=== PATIENT | female | born 1950 | race Hispanic/Latino ===

== ENCOUNTER 2017-12-09 11:29 | Inpatient (IN) | payer OTHER ==
[2017-12-09] MEDS ORDERED: NA CHLORIDE 0.9% 500 ML ONE (12:18)
[2017-12-09 13:10] LABS: Absolute Lymphocytes (CBC) 0.3 K/uL (0.7-4.9); Absolute Monocytes 0.9 K/uL (0.1-1.3); Absolute Neutrophil 5.3 K/uL (1.8-8.0); Basophils % 0.9 % (0-1.3); Eosinophils % 0.1 % (0-4.4); Hematocrit 28.1 % (36.0-45.0); Lymphocytes % 4.5 % (15.3-44.8); MCH 21.3 pg (27.0-35.0); MCV 70.9 fL (80-100); MPV 8.7 fL (7.6-11.3); Monocytes % 14.2 % (3.3-12.3); RBC Red Blood Cell Count 3.97 M/uL (3.86-4.86)
--- NOTE | 2017-12-09 13:41 | RAD REPORT ---
EXAM DESCRIPTION: RAD - Chest Single View - 12/09/2017 1:08 pm CLINICAL HISTORY: Shortness of breath, cough COMPARISON: June 2017 TECHNIQUE: AP portable chest image was obtained 1258 hours . FINDINGS: Patient has a baseline of chronic interstitial lung disease. Large left pleural effusion i s present. The convex contour raises concern for loculation. A much smaller right pleural effusion is present. There is fluid along the major and minor fissure on the right. Trachea is midline. Cardiome tamia is present. Vasculature is mildly prominent. Pneumothorax seen on the comparison is no longer id entifiable on this study. No acute bone findings seen. No acute aortic findings suspected. IMPRESSION: Large left-sided pleural effusion possibly loculated. Smaller right pleural effusion without evidence for loculation. Cardiomegaly increased from the June 2017 study. CHF/ volume overload are suspected.
--- NOTE | 2017-12-09 14:05 | ER ---
Nurse's Notes [facility] Name: Deejay Burgess Age: 67 yrs Sex: Female : 1950 Arrival Date: 12/09/2017 Time: 11:39 Bed 5 Private MD: Roxanne Lee Diagnosis: Pleural condition, unspecified;Dyspnea;Hypoxemia;Unspecified combined systolic (congestive) and diastolic (congestive) heart failure;Anemia, unspecified;Hypomagnesemia;Type 1 diabetes mellitus-poorly controlled Presentation: 12/09 11:30 Presenting complaint: EMS states: pt is a resident of [facility], diagnosed with sg bilateral pleural effusion, experiencing SOB this morning, NH staff reports 02 saturation low 80's, EMS report upon arrival 02 saturation of 98 percent on RA, NC o2 applied at 4 lpm NC for comfort. Transition of care: patient was received from another setting of care ([facility]. Onset of symptoms was December 09, 2017. Risk Assessment: Do you want to hurt yourself or someone else? Patient reports no desire to harm self or others. Initial Sepsis Screen: Does the patient meet any 2 criteria? HR > 90 bpm. Does the patient have a suspected source of infection? No. Patient's initial sepsis screen is negative. Care prior to arrival: Glucose check: 461. 11:30 Method Of Arrival: EMS: [facility] sg 11:30 Acuity: PEPPER 3 sg Triage Assessment: 11:40 General: Appears in no apparent distress. comfortable, slender, well groomed, well sg developed, well nourished, Behavior is calm, cooperative, appropriate for age. Respiratory: Reports shortness of breath at rest the patient has mild shortness of breath. Historical: - Allergies: 11:46 No Known Allergies; sg - Home Meds: 17:15 glipizide 5 mg Oral tab [Active]; Metformin Oral [Active]; Novolog 100 unit/mL Sub-Q sg soln [Active]; - PMHx: 11:46 Diabetes - IDDM; Pneumothorax; GERD; Hypertension; Pulmonary Fibrosis; Malnutrition; sg Dementia; Dysphagia; General Weakness; - PSHx: 11:46 chest tube; sg - Immunization history:: Adult Immunizations up to date. - Social history:: Smoking status: Patient/guardian denies using tobacco. - Ebola Screening: : Patient negative for fever greater than or equal to 101.5 degrees Fahrenheit, and additional compatible Ebola Virus Disease symptoms Patient denies exposure to infectious person Patient denies travel to an Ebola-affected area in the 21 days before illness onset No symptoms or risks identified at this time. - Code Status:: Full code. Screenin:40 Abuse screen: Denies threats or abuse. Denies injuries from another. Nutritional sg screening: No deficits noted. Tuberculosis screening: No symptoms or risk factors identified. Never had TB. Fall Risk None identified. Assessment: 11:40 General: Appears in no apparent distress. slender, well groomed, well developed, well sg nourished, malnourished, Behavior is calm, cooperative, appropriate for age. Pain: Denies pain. Neuro: Level of Consciousness is awake, alert, obeys commands, Oriented to person, place, time, situation, Automotive T[employer] Technician are equal bilaterally Moves all extremities. Speech is normal, Facial symmetry appears normal. Cardiovascular: Rhythm is sinus rhythm. Cardiovascular: Heart tones S1 S2 present Capillary refill is brisk in bilateral fingers Patient's skin is warm and dry. Pulses are palpable in right radial artery, right posterior tibial artery, left radial artery and left posterior tibial artery Edema is 2+ to right forearm, right wrist, right hand, left ankle, left foot, left toes, left forearm, left wrist, left hand, right ankle, right foot and right toes Chest pain is denied. Respiratory: Airway is patent Respiratory effort is even, unlabored, Respiratory pattern is regular, symmetrical, Breath sounds are diminished in left posterior lower lobe, right posterior middle lobe and right posterior lower lobe. GI: Abdomen is flat, non-distended, Bowel sounds present X 4 quads. hyperactive in right lower quadrant and left lower quadrant. : No signs and/or symptoms were reported regarding the genitourinary system. EENT: No signs and/or symptoms were reported regarding the EENT system. Derm: Skin is intact, is fragile, is thin, Skin is dry, Skin is pale, Skin temperature is hot. Musculoskeletal: No signs and/or symptoms reported regarding the musculoskeletal system. 13:00 Reassessment: Patient appears in no apparent distress at this time. Patient and/or sg family updated on plan of care and expected duration. Pain level reassessed. Patient is alert, oriented x 3, equal unlabored respirations, skin warm/dry/pink. Lab at bedside for blood draw. 14:30 Reassessment: Patient appears in no apparent distress at this time. Patient and/or sg family updated on plan of care and expected duration. Pain level reassessed. Patient is alert, oriented x 3, equal unlabored respirations, skin warm/dry/pink. pt attempt to provide a urine specimen, but also had a BM in the bed glover. no urine specimen collected at this time. 14:52 Reassessment: Patient appears in no apparent distress at this time. cardiopulmonary sg tech at bedside for ECHO. 16:30 Reassessment: Patient appears in no apparent distress at this time. Patient and/or sg family updated on plan of care and expected duration. Pain level reassessed. Patient is alert, oriented x 3, equal unlabored respirations, skin warm/dry/pink. Patient states feeling better. Reassessment: pt assisted onto bed glover, pt voided x1. Vital Signs: 11:39 BP 123 / 74; Pulse 103; Resp 17 S; Temp 99.6; Pulse Ox 93% on R/A; Pain 0/10; sg 11:40 Pulse Ox 100% on 3 lpm NC; sg 12:39 BP 121 / 79; Pulse 107; Resp 17 S; Pulse Ox 100% on R/A; Pain 0/10; sg 13:40 BP 122 / 70; Pulse 92; Resp 17; Pulse Ox 98% on 3 lpm NC; Pain 0/10; sg 17:50 BP 121 / 69; Pulse 92; Resp 17; Temp 98.9; Pulse Ox 99% on 3 lpm NC; Pain 0/10; ph ED Course: 11:30 Arm band placed on. sg 11:39 Patient arrived in ED. sg 11:39 Олег Nolan MD is Private Physician. sg 11:40 Patient has correct armband on for positive identification. Placed in gown. Bed in low sg position. Side rails up X2. metrology engineer on. Pulse ox on. NIBP on. Warm blanket given. Head of bed elevated. 11:40 Inserted saline lock: 22 gauge in right forearm, using aseptic technique. sg 11:42 Mitchell Bal MD is Attending Physician. [facility] 11:43 Triage completed. sg 11:50 Roxanne Lee is Private Physician. sg 11:52 Michele Cruz, RN is Primary Nurse. sg 12:13 EKG done, by orthodontic laboratory technician. reviewed by Mitchell Bal MD. tc 12:52 Radiology exam delayed due to lab draw. jr1 12:59 X-ray completed. Portable x-ray completed in exam room. jr1 13:00 XRAY Chest (1 view) In Process Unspecified. EDMS 14:02 Sawyer Kong DO is Hospitalizing Provider. althea 14:08 Assisted to bedside commode. sg 14:38 EJ access, d/t multiple recollects needed for serum blood draw. Lab(s) recollected, by ED staff, sent to lab. Inserted saline lock: 18 gauge in right EJ, using aseptic technique. Blood collected. IV inserted by . 14:48 Diet: Patient given water. sg 15:[address] sj 16:10 CT completed. Patient tolerated procedure well. Patient moved back from MA. nj 17:13 Patient admitted, IV remains in place. intact, No redness/swelling at site. sg Administered Medications: 12:20 Drug: NS 0.9% 1000 ml Route: IV; Rate: 75 ml/hr; Site: right forearm; sg 15:20 Drug: Lasix 40 mg Route: IVP; Site: right forearm; sg 16:00 Follow up: Response: No adverse reaction sg 15:30 Drug: Magnesium Sulfate 1 grams Route: IVPB; Infused Over: 1 hrs; Site: right forearm; ss 15:39 Drug: Insulin Regular Human 10 units {Co-Signature: em (Jessenia Keller RN).} Route: IVP; ss Site: right forearm; 17:12 Follow up: Response: No adverse reaction; Blood sugar is lowered; 339 sg 15:40 Drug: Insulin Regular Human 8 units {Co-Signature: ph (Jessenia Keller RN).} Route: ss Sub-Q; Site: right upper arm; Point of Care Testing: Blood Glucose: 12:35 Blood Glucose: 439 mg/dL; sg Ranges: Intake: 14:54 void urinex1 sg Output: 14:54 Stool: 1 (Loose Stool) ; Total: 0ml. sg 14:54 void urinex1 sg Outcome: 14:04 Decision to Hospitalize by Provider. althea 17:14 Admitted to Med/surg accompanied by tech, family with patient, via stretcher, room 201, with chart, Report called to Patti BOOGIE 17:14 Condition: stable 17:14 Instructed on the need for admit, safety practices, Demonstrated understanding of instructions. 17:57 Patient left the ED. sg Signatures: Dispatcher [employer] EDMichele Adler RN RN Mitchell Loja MD MD cha Jones, Carmen Hammad, Franchesca schneider1 Doreen Rodriguez RN RN Sarahi Ramirez, repair cameraman EKG [facility] Jessenia Keller RN RN ph Arun, Daren Keller RN ph Corrections: (The following items were deleted from the chart) 12:09 11:40 Cardiovascular: Heart tones S1 S2 present Capillary refill is brisk in bilateral sg fingers Patient's skin is warm and dry. Chest pain is denied 12:57 12:39 BP 121 / 79; Pulse 77bpm; Resp 17bpm; Spontaneous; Pulse Ox 100% RA; Pain 0/10; sgsg
--- NOTE | 2017-12-09 14:05 | EDPHYS ---
Physician Documentation [facility] Name: Deejay Burgess Age: 67 yrs Sex: Female : 1950 Arrival Date: 12/09/2017 Time: 11:39 Bed 5 Private MD: Roxanne Lee ED Physician Mitchell Bal HPI: 12/09 11:55 This 67 yrs old Female presents to ER via EMS with complaints of Shortness Of althea Breath, General Weakness. 11:55 The patient has shortness of breath at rest, with light activity. Onset: The althea symptoms/episode began/occurred 2 day(s) ago. Duration: The symptoms are chronic. The patient's shortness of breath has no apparent modifying factors. Associated signs and symptoms: Pertinent positives: non-productive cough, nausea. Severity of symptoms: At their worst the symptoms were moderate in the emergency department the symptoms have resolved. The patient has experienced similar episodes in the past, several times. Historical: - Allergies: 11:46 No Known Allergies; sg - Home Meds: 17:15 glipizide 5 mg Oral tab [Active]; Metformin Oral [Active]; Novolog 100 unit/mL Sub-Q sg soln [Active]; - PMHx: 11:46 Diabetes - IDDM; Pneumothorax; GERD; Hypertension; Pulmonary Fibrosis; Malnutrition; sg Dementia; Dysphagia; General Weakness; - PSHx: 11:46 chest tube; sg - Immunization history:: Adult Immunizations up to date. - Social history:: Smoking status: Patient/guardian denies using tobacco. - Ebola Screening: : Patient negative for fever greater than or equal to 101.5 degrees Fahrenheit, and additional compatible Ebola Virus Disease symptoms Patient denies exposure to infectious person Patient denies travel to an Ebola-affected area in the 21 days before illness onset No symptoms or risks identified at this time. - Code Status:: Full code. ROS: 11:57 Constitutional: Negative for fever, chills, and weight loss, Eyes: Negative for injury, althea pain, redness, and discharge, ENT: Negative for injury, pain, and discharge, Neck: Negative for injury, pain, and swelling, Cardiovascular: Negative for chest pain, palpitations, and edema, Abdomen/GI: Negative for abdominal pain, nausea, vomiting, diarrhea, and constipation, Back: Negative for injury and pain, : Negative for injury, bleeding, discharge, and swelling, Skin: Negative for injury, rash, and discoloration, Neuro: Negative for headache, weakness, numbness, tingling, and seizure, Psych: Negative for depression, anxiety, suicide ideation, homicidal ideation, and hallucinations, Allergy/Immunology: Negative for hives, rash, and allergies, Endocrine: Negative for neck swelling, polydipsia, polyuria, polyphagia, and marked weight changes, Hematologic/Lymphatic: Negative for swollen nodes, abnormal bleeding, and unusual bruising. 11:57 Respiratory: Positive for cough, shortness of breath. 11:57 MS/extremity: Positive for decreased range of motion, pain, swelling, tenderness, of the right leg and left leg. Exam: 11:57 Constitutional: This is a well developed, well nourished patient who is awake, alert, althea and in no acute distress. Head/Face: Normocephalic, atraumatic. Eyes: Pupils equal round and reactive to light, extra-ocular motions intact. Lids and lashes normal. Conjunctiva and sclera are non-icteric and not injected. Cornea within normal limits. Periorbital areas with no swelling, redness, or edema. ENT: Nares patent. No nasal discharge, no septal abnormalities noted. Tympanic membranes are normal and external auditory canals are clear. Oropharynx with no redness, swelling, or masses, exudates, or evidence of obstruction, uvula midline. Mucous membranes moist. Neck: Trachea midline, no thyromegaly or masses palpated, and no cervical lymphadenopathy. Supple, full range of motion without nuchal rigidity, or vertebral point tenderness. No Meningismus. Chest/axilla: Normal chest wall appearance and motion. Nontender with no deformity. No lesions are appreciated. Cardiovascular: Regular rate and rhythm with a normal S1 and S2. No gallops, murmurs, or rubs. Normal PMI, no JVD. No pulse deficits. Abdomen/GI: Soft, non-tender, with normal bowel sounds. No distension or tympany. No guarding or rebound. No evidence of tenderness throughout. Back: No spinal tenderness. No costovertebral tenderness. Full range of motion. Skin: Warm, dry with normal turgor. Normal color with no rashes, no lesions, and no evidence of cellulitis. Neuro: Awake and alert, GCS 15, oriented to person, place, time, and situation. Cranial nerves II-XII grossly intact. Motor strength 5/5 in all extremities. Sensory grossly intact. Cerebellar exam normal. Normal gait. Psych: Awake, alert, with orientation to person, place and time. Behavior, mood, and affect are within normal limits. 11:57 Respiratory: the patient does not display signs of respiratory distress, Respirations: normal, Breath sounds: decreased breath sounds, that are moderate, are located in both bases, Respiratory rate: 20 Vital Signs: 11:39 BP 123 / 74; Pulse 103; Resp 17 S; Temp 99.6; Pulse Ox 93% on R/A; Pain 0/10; sg 11:40 Pulse Ox 100% on 3 lpm NC; sg 12:39 BP 121 / 79; Pulse 107; Resp 17 S; Pulse Ox 100% on R/A; Pain 0/10; sg 13:40 BP 122 / 70; Pulse 92; Resp 17; Pulse Ox 98% on 3 lpm NC; Pain 0/10; sg 17:50 BP 121 / 69; Pulse 92; Resp 17; Temp 98.9; Pulse Ox 99% on 3 lpm NC; Pain 0/10; ph Procedures: 14:33 Peripheral line: by aseptic technique a peripheral line was placed in the right [facility] external jugular vein. MDM: 11:42 Patient medically screened. [facility] 14:13 Data reviewed: vital signs, nurses notes, lab test result(s), EKG, radiologic studies, [facility] CT scan, plain films. 12/09 11:55 Order name: Basic Metabolic Panel [facility] 12/09 11:55 Order name: BNP [facility] 12/09 11:55 Order name: CBC with Diff [facility] 12/09 11:55 Order name: Ckmb; Complete Time: 15:25 [facility] 12/09 11:55 Order name: CPK; Complete Time: 15:25 [facility] 12/09 11:55 Order name: LFT's; Complete Time: 15:25 [facility] 12/09 11:55 Order name: Magnesium; Complete Time: 15:25 [facility] 12/09 11:55 Order name: PT-INR [facility] 12/09 11:55 Order name: Ptt, Activated [facility] 12/09 11:55 Order name: Troponin (emerg Dept Use Only); Complete Time: 13:58 [facility] 12/09 11:55 Order name: Lipase; Complete Time: 15:25 [facility] 12/09 11:55 Order name: Blood Culture Adult (2) [facility] 12/09 11:55 Order name: Type And Screen; Complete Time: 14:18 [facility] 12/09 11:55 Order name: Urine Culture [facility] 12/09 11:55 Order name: XRAY Chest (1 view); Complete Time: 13:58 [facility] 12/09 11:55 Order name: EKG; Complete Time: 11:56 [facility] 12/09 11:55 Order name: Cardiac monitoring; Complete Time: 12:08 [facility] 12/09 11:56 Order name: Basic Metabolic Panel; Complete Time: 15:25 [facility] 12/09 11:56 Order name: BNP B-Type Natriuretic Peptide [facility] 12/09 11:56 Order name: CBC with Automated Diff; Complete Time: 15:25 [facility] 12/09 13:20 Order name: CBC Smear Scan; Complete Time: 15:25 [facility] 12/09 14:13 Order name: CONS Physician Consult [facility] 12/09 14:13 Order name: Echo with Doppler [facility] 12/09 14:14 Order name: CONS Physician Consult [facility] 12/09 17:00 Order name: CT [facility] 12/09 11:55 Order name: EKG - Nurse/Tech; Complete Time: 12:08 [facility] 12/09 11:55 Order name: IV Saline Lock; Complete Time: 12:08 [facility] 12/09 11:55 Order name: Labs collected and sent; Complete Time: 12:08 [facility] 12/09 11:55 Order name: O2 Per Protocol; Complete Time: 12:08 [facility] 12/09 11:55 Order name: O2 Sat Monitoring; Complete Time: 12:08 [facility] 12/09 13:12 Order name: Labs - recollect needed; Complete Time: 14:04 ag 12/09 14:25 Order name: Labs - recollect needed; Complete Time: 14:35 ag Administered Medications: 12:20 Drug: NS 0.9% 1000 ml Route: IV; Rate: 75 ml/hr; Site: right forearm; sg 15:20 Drug: Lasix 40 mg Route: IVP; Site: right forearm; sg 16:00 Follow up: Response: No adverse reaction sg 15:30 Drug: Magnesium Sulfate 1 grams Route: IVPB; Infused Over: 1 hrs; Site: right forearm; ss 15:39 Drug: Insulin Regular Human 10 units {Co-Signature: em (Jessenia Keller RN).} Route: IVP; ss Site: right forearm; 17:12 Follow up: Response: No adverse reaction; Blood sugar is lowered; 339 sg 15:40 Drug: Insulin Regular Human 8 units {Co-Signature: em (Jessenia Keller RN).} Route: ss Sub-Q; Site: right upper arm; Point of Care Testing: Blood Glucose: 12:35 Blood Glucose: 439 mg/dL; sg Ranges: Critical Glucose Levels:Adult <50 mg/dl or >400 mg/dl <40 mg/dl or >180 mg/dl Disposition: 12/09/17 14:04 Hospitalization ordered by Sawyer Kong for Inpatient Admission. Preliminary diagnosis are Pleural condition, unspecified, Dyspnea, Hypoxemia, Unspecified combined systolic (congestive) and diastolic (congestive) heart failure, Anemia, unspecified, Hypomagnesemia, Type 1 diabetes mellitus - poorly controlled. - Bed requested for Telemetry/MedSurg (Inpatient). - Status is Inpatient Admission. sg - Condition is Fair. - Problem is new. - Symptoms have improved. UTI on Admission? No Signatures: Dispatcher [employer] EDSandra Colvin RN RN dw Gay, Steven, RN RN sg Anderson, Corey, MD MD cha Smirch, Shelby, RN RN Eliza Will RN ph Corrections: (The following items were deleted from the chart) 14:13 14:04 Hospitalization Ordered by Sawyer Kong DO for Inpatient Admission. Preliminary althea diagnosis is Pleural condition, unspecified; Dyspnea; Hypoxemia. Bed requested for Telemetry/MedSurg (Inpatient). Status is Inpatient Admission. Condition is Fair. Problem is new. Symptoms have improved. UTI on Admission? No. althea 15:28 14:13 12/09/2017 14:04 Hospitalization Ordered by Sawyer Kong DO for Inpatient althea Admission. Preliminary diagnosis is Pleural condition, unspecified; Dyspnea; Hypoxemia; Unspecified combined systolic (congestive) and diastolic (congestive) heart failure. Bed requested for Telemetry/MedSurg (Inpatient). Status is Inpatient Admission. Condition is Fair. Problem is new. Symptoms have improved. UTI on Admission? No. althea 17:08 15:28 12/09/2017 14:04 Hospitalization Ordered by Sawyer Kong DO for Inpatient dw Admission. Preliminary diagnosis is Pleural condition, unspecified; Dyspnea; Hypoxemia; Unspecified combined systolic (congestive) and diastolic (congestive) heart failure; Anemia, unspecified; Hypomagnesemia; Type 1 diabetes mellitus - poorly controlled. Bed requested for Telemetry/MedSurg (Inpatient). Status is Inpatient Admission. Condition is Fair. Problem is new. Symptoms have improved. UTI on Admission? No. [facility] 17:57 17:08 12/09/2017 14:04 Hospitalization Ordered by Sawyer Kong DO for Inpatient sg Admission. Preliminary diagnosis is Pleural condition, unspecified; Dyspnea; Hypoxemia; Unspecified combined systolic (congestive) and diastolic (congestive) heart failure; Anemia, unspecified; Hypomagnesemia; Type 1 diabetes mellitus - poorly controlled. Bed requested for Telemetry/MedSurg (Inpatient). Status is Inpatient Admission. Condition is Fair. Problem is new. Symptoms have improved. UTI on Admission? No. dw
[2017-12-09 14:28] LABS: Anisocytosis 1+; Blood Morphology Comment NOTED (NOT SEEN); Burr Cells FEW; Hypochromasia 1+; Ovalocytes SLIGHT; Platelet Estimate ADEQ; Polychromasia 2+; Teardrop Cell FEW; Urine White Blood Cell Casts OK
--- NOTE | 2017-12-09 15:00 | EKG ---
Test Date: 2017-12-09 Test Time: 12:06:58 Delinquent Notice Machine Operator: CHET MEASUREMENT RESULTS: Intervals: Rate: 102 AR: 140 QRSD: 72 QT: 320 QTc: 417 [place]: P: 41 AR: 140 QRS: 46 T: 97 INTERPRETIVE STATEMENTS: Sinus tachycardia with premature atrial complexes Low voltage QRS Nonspecific T wave abnormality Abnormal ECG Compared to ECG 06/13/2017 16:40:39 Atrial premature complex(es) now present T-wave abnormality now present Sinus rhythm no longer present Electronically Signed On 12-09-17 14:58:58 CDT by Obed Gomez
[2017-12-09 15:01] LABS: Bicarbonate 28 mEq/L (21-31); Lipase 19 U/L (22-51); Sodium Level 128 mEq/L (135-145)
[2017-12-09 15:07] LABS: ALT/SGPT 10 IU/L (10-60); AST/SGOT 14 IU/L (10-42); Albumin 1.8 g/dL (3.2-5.5); Alkaline Phosphatase 79 IU/L (42-121); BUN Blood Urea Nitrogen 16 mg/dL (6-20); Bilirubin Direct 0.2 mg/dL (0-0.2); Bilirubin Total 0.7 mg/dL (0.3-1.2); Creatine Phosphokinase 12 IU/L (22-269); Protein, Total 6.3 g/dL (6.0-8.3)
[2017-12-09 15:20] LABS: Magnesium 1.2 mg/dL (1.8-2.5)
[2017-12-09 15:24] LABS: Glucose Level 432 mg/dL (65-120)
[2017-12-09] MEDS ORDERED: FUROSEMIDE 40 MG/4 ML VIAL ONE (15:28)
[2017-12-09] MEDS ORDERED: INSULIN -REGULAR HUMAN 50 UNIT/0.5 ML ML ONE (15:35)
[2017-12-09] MEDS ORDERED: MAGNESIUM SULFATE 1 gm IVPB 1 GM/100 ML BAG IV ONE (15:35)
[2017-12-09] MEDS ORDERED: D50W 25 GM/50 ML SYRINGE IV PRN (15:42)
[2017-12-09] MEDS ORDERED: ALBUTEROL 2.5 MG/3 ML NEB SOL NEB PRN (15:42)
[2017-12-09] MEDS ORDERED: ONDANSETRON 4 MG/2 ML VIAL IV PRN (15:42)
[2017-12-09] MEDS ORDERED: GLUCAGON 1 MG/VIAL IM PRN (15:42)
[2017-12-09] MEDS ORDERED: ACETAMINOPHEN 500 MG TAB PO PRN (15:42)
[2017-12-09] MEDS ORDERED: IPRATROPIUM BROM 0.5MG/2.5ML NEB PRN (15:42)
--- NOTE | 2017-12-09 16:01 | P.HP ---
Certification for Inpatient Patient admitted to: Inpatient With expected LOS: >2 Midnights Patient will require the following post-hospital care: None Practitioner: I am a practitioner with admitting privileges, knowledge of patient current condition, hospital course, and medical plan of care. Services: Services provided to patient in accordance with Admission requirements found in Title 42 Section 412.3 of the Code of Federal Regulations Patient History Date of Service: 12/09/17 Primary Care Provider: [facility] Reason for admission: SOB History of Present Illness: 67 yo HF presented to the ER after she was sent from the shelter due to shortness of breath. Her daughter in law is at bedside. She reports that she has noted some SOB and cough for the last couple of days. It has been getting worse. She has some mild pain to the epigastric region. The nurses at the shelter mention a room air sat of 80s. Her SOB got worse today. She also had more edema to the lower ext. No nausea or vomiting. Her appetite has been better. In the ER she was found to have a Large pleural effusion with possible loculation along with a small pleural effusion in the right. Her WBC is normal. Her blood suger is elevated. Trop is 0.03. Her magnesium is low. Due to the finding she is admitted for further evaluation and treatment. She is stable on normal canula. When I saw the patient she did not appear in respiratory distress. She has 2-3 plus pitting edema to the lower ext. Her daughter in law mentioned that she was in [place] in June and had 1/3 of her right lung removed. Allergies No Known Allergies Allergy (Verified 05/12/17 21:31) Home Medications: Glipizide [Glucotrol] 10 mg PO BID 05/13/17 Metformin HCl 1,000 mg PO BID 05/13/17 - Past Medical/Surgical History Diabetic: Yes -: DM Type 2 -: HTN -: GERD -: History of 1/3 lung removed with Hx of Pleural effusion/Pneumothorax -: 1/3 lung removed Psychosocial/ Personal History: She is living in shelter. - Family History Mother -: Cancer Notes: stomach cancer Father -: Heart disease - Social History Smoking Status: Never smoker Alcohol use: No CD- Drugs: No Caffeine use: Yes Place of Residence: Residential Review of Systems General: Weakness, Malaise Eyes: Unremarkable ENT: Unremarkable Respiratory: Shortness of Breath, SOB with Excertion, As per HPI Cardiovascular: Edema, As per HPI Gastrointestinal: Nausea, As per HPI Genitourinary: Unremarkable Musculoskeletal: Unremarkable Integumentary: Unremarkable Neurological: As per HPI Lymphatics: Unremarkable Physical Examination - Physical Exam General: Alert, In no apparent distress, Oriented x3, Cooperative HEENT: Atraumatic, Normocephalic, Mucous membr. moist/pink Neck: Supple, No Thyromegaly Respiratory: Diminished (to the left base), Crackles/rales (bilateral) Cardiovascular: Normal pulses, Regular rate/rhythm Gastrointestinal: Normal bowel sounds, Soft and benign, Non-distended, No tenderness, No masses, No rebound, No guarding Musculoskeletal: No erythema, No tenderness, No warmth Integumentary: No erythema, No warmth, Tenderness/swelling (2-3 plus pitting edema to the lower ext) Neurological: Normal speech, Normal strength at 5/5 x4 extr, Normal tone, Normal affect - Studies Laboratory Data (last 24 hrs) 12/09/17 12:40: WBC 6.6 D, Hgb 8.5 L, Hct 28.1 L, Plt Count 306 Assessment and Plan - Problems (Diagnosis) (1) Dyspnea Current Visit: Yes Status: Acute Plan: Will order CT scan of chest to further assess. Case discussed with Pulmonary. Await findings. Will continue with Lasix and fluid restriction. Will maintain sats above 90%. Will start Levaquin due to recent cough. Await recommendations. Qualifiers: Dyspnea type: shortness of breath Qualified Code(s): R06.02 - Shortness of breath; R06.00 - Dyspnea, unspecified; R06.01 - Orthopnea (2) Pleural effusion Current Visit: Yes Status: Acute Plan: Continue as above. Pulmonary consulted. (3) Hx of pneumonectomy Current Visit: Yes Status: Chronic Plan: Right sided. Stable. (4) CHF (congestive heart failure) Current Visit: Yes Status: Acute Plan: Suspect CHF. Will start Lasix. Fluid restriction started. ECHO ordered. Await recommendation by Cardiology. Qualifiers: Heart failure type: systolic Heart failure chronicity: acute on chronic Qualified Code(s): I50.23 - Acute on chronic systolic (congestive) heart failure (5) Hypomagnesemia Current Visit: Yes Status: Acute (6) Hyponatremia Current Visit: Yes Status: Acute Plan: Will monitor. Likely from volume overload (7) Anemia Onset Date: 05/13/17 Current Visit: No Status: Chronic Plan: Will check Iron studies. Monitor anemia Qualifiers: Anemia type: iron deficiency Iron deficiency anemia type: unspecified iron deficiency Qualified Code(s): D50.9 - Iron deficiency anemia, unspecified (8) Diabetes mellitus Onset Date: 05/13/17 Current Visit: No Status: Chronic Plan: BS elevated. Will start Basal insulin. Will check A1c. Will continue with accucheck and sliding scale. Qualifiers: Diabetes mellitus type: type 2 Diabetes mellitus m[facility]p insulin use: with mcfp use Diabetes mellitus complication status: with unspecified complications Qualified Code(s): E11.8 - Type 2 diabetes mellitus with unspecified complications; Z79.4 - meterman (current) use of insulin; Z79.4 - half-way (current) use of insulin; Z79.4 - meterman (current) use of insulin; Z79.4 - half-way (current) use of insulin (9) GERD (gastroesophageal reflux disease) Onset Date: 05/23/17 Current Visit: No Status: Chronic Plan: Will continue with PPI Qualifiers: Esophagitis presence: with esophagitis Qualified Code(s): K21.0 - Gastro- esophageal reflux disease with esophagitis (10) Hypertension Onset Date: 05/23/17 Current Visit: No Status: Chronic Plan: BP stable. Will review medication from [facility]. Qualifiers: Hypertension type: essential hypertension Qualified Code(s): I10 - Essential (primary) hypertension (11) Interstitial lung disease Current Visit: No Status: Chronic Plan: Continue as above Discharge Plan: Residential Plan to discharge in: Greater than 2 days - Advance Directives Does patient have a Living Will: No Does patient have a Durable POA for Healthcare: No - Code Status/Comfort Care Code Status Assessed: Yes Time Spent Managing Pts Care (In Minutes): 55
[2017-12-09] MEDS: INSULIN -REGULAR HUMAN 50 UNIT/0.5 ML ML SQ SCH ×2 (16:30→22:00)
[2017-12-09] MEDS ORDERED: ENOXAPARIN 40 MG/0.4 ML SQ SCH (17:00)
[2017-12-09] MEDS: FUROSEMIDE 40 MG/4 ML VIAL IV SCH (17:00)
--- NOTE | 2017-12-09 17:00 | RAD REPORT ---
EXAM DESCRIPTION: CT - Thorax W/ Con - 12/09/2017 4:10 pm CLINICAL HISTORY: Shortness of breath COMPARISON: April 2017 TECHNIQUE: Computed axial tomography of the chest was obtained. 100 cc Isovue 300 was administered i ntravenously. All CT scans are performed using dose optimization technique as appropriate and may include automated exposure control or mA/KV adjustment according to patient size. FINDINGS: Moderate loculated bilateral pleural effusions are present with bilateral lower lobe atele ctasis. A mild right lower lobe consolidation is seen. Bilateral bronchiectasis and pulmonary fibrosis is pre sent. No mediastinal or hilar lymphadenopathy is seen. A small pericardial effusion is seen. Diffuse edema within the subcutaneous tissues has the appearanc e of anasarca IMPRESSION: Moderate bilateral loculated pleural effusions Right lower lobe pneumonia
[2017-12-09] MEDS ORDERED: BENZONATATE 100 MG CAP PO PRN (17:50)
[2017-12-09 19:32] LABS: Urine Appearance TURBID; Urine Bilirubin NEGATIVE (NEG); Urine Blood 2+ (NEG); Urine Color YELLOW; Urine Glucose 2+ (NEG); Urine Protein TRACE (NEG); Urine pH 6.5 (5.0-7.0)
[2017-12-09] MEDS: ARFORMOTEROL TARTRATE 15 MCG/2 ML VIAL.NEB NEB SCH (19:49)
[2017-12-09 19:53] LABS: Urine Microscopic Reflex ORDER UMIC
[2017-12-09 20:33] LABS: Urine Amorphous Sediment 2+ /HPF (NONE SEEN); Urine Bacteria 20-50 /HPF (<20); Urine Culture Reflex Order NOT NEEDED; Urine Yeast PRESENT (NONE SEEN)
[2017-12-09] MEDS ORDERED: Levofloxacin500mg IV 500 MG/100 ML BAG IV SCH (21:00)
[2017-12-09] MEDS ORDERED: INSULIN DETEMIR 100 UNIT/1 ML INSULIN SQ SCH (21:00)
[2017-12-09 21:32] LABS: Protime INR 1.6
[2017-12-09 21:34] LABS: CKMB Creatine Kinase MB 0.8 ng/ml (0.3-4.0)
[2017-12-09] MEDS ORDERED: NA CHLORIDE 0.9% 250 ML ONE (22:08)
--- NOTE | 2017-12-10 03:55 | CON ---
Date of Consultation: 12/09/2017 Reason For Consultation: Shortness of breath, weakness, and pleural effusion. History Of Present Illness: Ms. Ayers is a 67-year-old woman with history of diabete s, hypertension, pulmonary fibrosis, dysphagia, and gastroesophageal reflux disease. Apparently, had a chest tube placed to drain a pleural effusion by Dr. Morley recently. She came in with shortnes s of breath and was noted to have a loculated large pleural effusion on the left. She has also an ef fusion on the right by CT scan and has a right lower lobe pneumonia. She is anemic with a glucose of 432, low magnesium, and low sodium, BNP of 279. EKG shows sinus tachycardia with PACs. She is asym ptomatic now. Echocardiogram that was done shows left ventricular hypertrophy with decreased left ve ntricular compliance and pleural effusion. Normal ejection fraction. Past Medical History: As stated above. Allergies: NONE. Review of Systems: Negative. Social History: Positive for her living in the [facility]. Home Medications: Lipitor and metformin. Physical Examination: General: She was alert and oriented. Vital Signs: Stable, afebrile. No acute distress. Breathing comfortably. Good O2 saturation on 2 L. HEENT: Negative. Neck: Supple without any bruit, lymphadenopathy, JVD, or thyromegaly. Chest: Revealed decreased breath sounds bilaterally. Cardiac: Revealed a regular rhythm and rate with an S4 gallop. Abdomen: Benign. Extremities: Reveal trace edema. Diagnostic Data: As stated earlier. Impression And Plan: 1.Bilateral pleural effusions that are chronic. 2.Right lower lobe pneumonia. 3.Anemia. 4.Diabetes, poorly controlled. 5.Low magnesium and sodium. The sodium is secondary to the elevated glucose level. Her other problems include pulmonary fibrosis that is chronic dysphagia and gastroesophageal reflux d isease that seemed to be stable. I would like to make a note that is her echocardiogram may be sugge stive of amyloidosis. She had right ventricular hypertrophy, left ventricular hypertrophy, decreased left ventricular compliance. This may be suggestive of amyloidosis as may be some of her other prob lems. I will discuss the case with Dr. Kong. We will have my partner, Dr. Salas Wagner, review e echo as well and get his opinion. I agree with the present regimen otherwise. I do not think her issues are congestive heart failure related. NB/MODL Voice ID: [id number] Report ID: [id number]
[2017-12-10 05:56] LABS: Absolute Lymphocytes (CBC) 0.3 K/uL (0.7-4.9); Absolute Monocytes 1.1 K/uL (0.1-1.3); Absolute Neutrophil 5.7 K/uL (1.8-8.0); Basophils % 0.2 % (0-1.3); Eosinophils % 0.1 % (0-4.4); Hematocrit 26.2 % (36.0-45.0); Lymphocytes % 4.2 % (15.3-44.8); MCH 21.9 pg (27.0-35.0); MCV 69.4 fL (80-100); MPV 8.1 fL (7.6-11.3); Monocytes % 15.3 % (3.3-12.3); RBC Red Blood Cell Count 3.77 M/uL (3.86-4.86)
[2017-12-10 06:37] LABS: CKMB Creatine Kinase MB 1.2 ng/ml (0.3-4.0)
[2017-12-10 06:44] LABS: BUN Blood Urea Nitrogen 15 mg/dL (6-20); Bicarbonate 30 mEq/L (21-31); Ferritin 468.2 ng/ml (11.0-306.8); HDL Cholesterol 22 mg/dL (29-89); LDL Cholesterol, Calculated 37 (<130); Sodium Level 134 mEq/L (135-145); Thyroid Stimulating Hormone 1.15 uIU/mL (0.34-5.60); Transferrin 131 mg/dL (192-382)
[2017-12-10 06:50] LABS: Glucose Level 34 mg/dL (65-120); Magnesium 1.2 mg/dL (1.8-2.5)
[2017-12-10] MEDS: INSULIN -REGULAR HUMAN 50 UNIT/0.5 ML ML SQ SCH ×3 (07:23→16:30)
--- NOTE | 2017-12-10 07:25 | RAD REPORT ---
EXAM DESCRIPTION: Sixto Single View12/10/2017 6:43 am CLINICAL HISTORY: sob COMPARISON: Dec 09 2017 FINDINGS: The moderate loculated pleural effusions have equivocally slightly decreased in size. Biba silar atelectasis is present. A right lower lobe infiltrate has mildly improved.
[2017-12-10] MEDS ORDERED: PANTOPRAZOLE 40MG TABLET PO SCH (07:30)
[2017-12-10] MEDS: ARFORMOTEROL TARTRATE 15 MCG/2 ML VIAL.NEB NEB SCH (07:48)
--- NOTE | 2017-12-10 07:54 | ECHO ---
HEIGHT: 5 ft 6 in WEIGHT: 118 lb 6.4 oz DATE OF STUDY: 12/09/[address]: Mitchell Bal MD 2-DIMENSIONAL: YES M.MODE: YES DOPPLER: YES COLOR FLOW: YES TDS: NO PORTABLE: NO DEFINITY: NO BUBBLE STUDY: NO DIAGNOSIS: CONGESTIVE HEART FAILURE, PLEURAL EFFUSION CARDIAC HISTORY: CATHERIZATION: NO SURGERY: NO PROSTHETIC VALVE: NO PACEMAKER: NO MEASUREMENTS (cm) DIASTOLIC (NORMALS) SYSTOLIC (NORMALS) IVSd 1.0 (0.6-1.2) LA Diam 2.3 (1.9-4.0) LVEF 52% LVIDd 3.1 (3.5-5.7) LVIDs 2.3 (2.0-3.5) %FS 26% LVPWd 1.2 (0.6-1.2) Ao Diam 2.7 (2.0-3.7) 2 DIMENSIONAL ASSESSMENT: RIGHT ATRIUM: NORMAL LEFT ATRIUM: NORMAL RIGHT VENTRICLE: RIGHT VENTRICULAR HYPERTROPHY LEFT VENTRICLE: LEFT VENTRICULAR HYPERTROPHY TRICUSPID VALVE: NORMAL MITRAL VALVE: MITRAL ANNULAR CALCIFICATION PULMONIC VALVE: NORMAL AORTIC VALVE: SCLEROSIS PERICARDIAL EFFUSION: NONE AORTIC ROOT: NORMAL LEFT VENTRICULAR WALL MOTION: DECREASED LEFT VENTRICULAR COMPLIANCE. DOPPLER/COLOR FLOW: MILD MITRAL AND TRICUSPID REGURGITATION NORMAL RIGHT VENTRICULAR SYSTOLIC PRESSURE. COMMENTS: RIGHT VENTRICULAR HYPERTROPHY, LEFT VENTRICULAR HYPERTROPHY, DECREASED LEFT VENTRICULAR COMPLIANCE. POSSIBLE AMYLODOSIS. MILD MITRAL AND TRICUSPID REGURGITATION NORMAL RIGHT VENTRICULAR SYSTOLIC PRESSURE. NORMAL EJECTION FRACTION. MITRAL ANNULAR CALCIFICATION. AORTIC SCLEROSIS BUT NO STENOSIS. TECHNOLOGIST: LAUREEN HAMLIN
[2017-12-10] MEDS ORDERED: TRAMADOL HCL 50 MG TAB PO PRN (08:05)
--- NOTE | 2017-12-10 08:11 | P.PN ---
Subjective Date of Service: 12/10/17 Primary Care Provider: group home Chief Complaint: SOB Subjective: Improving (Patient feels shortness of breath improved. Edema to the lower extremity improved.) Physical Examination - Vital Signs Temperature: 98.7 F Blood Pressure: 141/64 Pulse: 129 Respirations: 17 Pulse Ox (%): 96 - Physical Exam General: Alert, In no apparent distress, Cooperative HEENT: Atraumatic Neck: Supple Respiratory: Diminished (Bilateral but improved aeration to the anterior side), Crackles/rales (Bilateral) Cardiovascular: Abnormal pulses (Sinus tachycardia) Gastrointestinal: Normal bowel sounds, Soft and benign, Non-distended, No tenderness, No masses, No rebound, No guarding Musculoskeletal: No tenderness, No warmth Integumentary: Tenderness/swelling (Edema to the lower extremities improved since yesterday.) Neurological: Normal speech, Normal strength at 5/5 x4 extr, Normal tone, Normal affect - Studies Laboratory Data (last 24 hrs) 12/09/17 12:40: WBC 6.6 D, Hgb 8.5 L, Hct 28.1 L, Plt Count 306 Medications List Reviewed: Yes Assessment & Plan - Problems (Diagnosis) (1) Dyspnea Current Visit: Yes Status: Acute Plan: CT scan shows bilateral moderate sized pleural effusions that are loculated. Right lower lobe pneumonia also noted. Continue IV antibiotic therapy. Continue IV Lasix. Case discussed with cardiology. Echocardiogram showed ejection fraction of 52%. Right ventricular hypertrophy, left ventricular hypertrophy, decreased left ventricular compliance noted. Possible amyloidosis. Will discuss with pulmonology. Await recommendations. Will continue to monitor chest x-rays. Qualifiers: Dyspnea type: shortness of breath Qualified Code(s): R06.02 - Shortness of breath; R06.00 - Dyspnea, unspecified; R06.01 - Orthopnea (2) Pleural effusion Current Visit: Yes Status: Acute Plan: Continue as above. (3) Hx of pneumonectomy Current Visit: Yes Status: Chronic Plan: Right sided. Stable. (4) CHF (congestive heart failure) Current Visit: Yes Status: Acute Plan: Patient likely has underlying diastolic dysfunction. Continue IV Lasix. Fluid restriction to be continued. Case discussed with cardiology. Possible amyloidosis. Await pulmonology recommendations. Qualifiers: Heart failure type: diastolic Heart failure chronicity: acute on chronic Qualified Code(s): I50.33 - Acute on chronic diastolic (congestive) heart failure (5) Hypomagnesemia Current Visit: Yes Status: Acute Plan: Continue to monitor and address appropriately. Replacement protocol in place. (6) Hyponatremia Current Visit: Yes Status: Acute Plan: Will monitor. Likely from volume overload (7) Anemia Onset Date: 05/13/17 Current Visit: No Status: Chronic Plan: Iron deficiency noted. Will start IV iron. Qualifiers: Anemia type: iron deficiency Iron deficiency anemia type: unspecified iron deficiency Qualified Code(s): D50.9 - Iron deficiency anemia, unspecified (8) Diabetes mellitus Onset Date: 05/13/17 Current Visit: No Status: Chronic Plan: Blood sugar dropped this morning. Will hold basal insulin. Will continue with sliding scale. Qualifiers: Diabetes mellitus type: type 2 Diabetes mellitus nursing home insulin use: with termite treater use Diabetes mellitus complication status: with unspecified complications Qualified Code(s): E11.8 - Type 2 diabetes mellitus with unspecified complications; Z79.4 - residential (current) use of insulin; Z79.4 - exterminator helper (current) use of insulin; Z79.4 - residential (current) use of insulin; Z79.4 - exterminator helper (current) use of insulin (9) GERD (gastroesophageal reflux disease) Onset Date: 05/23/17 Current Visit: No Status: Chronic Plan: Will continue with PPI Qualifiers: Esophagitis presence: with esophagitis Qualified Code(s): K21.0 - Gastro- esophageal reflux disease with esophagitis (10) Hypertension Onset Date: 05/23/17 Current Visit: No Status: Chronic Plan: BP stable. If blood pressure elevated may need to start beta-billy therapy. Qualifiers: Hypertension type: essential hypertension Qualified Code(s): I10 - Essential (primary) hypertension (11) Interstitial lung disease Current Visit: No Status: Chronic Plan: Continue as above (12) Loculated pleural effusion Current Visit: Yes Status: Acute Plan: Continue as above. Await pulmonology recommendations (13) Amyloidosis Current Visit: Yes Status: Suspected Plan: Echo over reviewed with cardiology. Cardiology suspects amyloidosis. Will discuss with pulmonology. Qualifiers: Amyloidosis type: unspecified amyloidosis Qualified Code(s): E85.9 - Amyloidosis, unspecified (14) Pneumonia Current Visit: No Status: Acute Plan: Right lower lobe pneumonia noted. Will continue with antibiotic therapy. Qualifiers: Pneumonia type: due to unspecified organism Laterality: right Lung location: lower lobe of lung Qualified Code(s): J18.1 - Lobar pneumonia, unspecified organism Discharge Plan: Senior Living Plan to discharge in: Greater than 2 days Time Spent Managing Pts Care (In Minutes): 55
[2017-12-10 08:47] LABS: A1c Component 0.93 mg/dL; Hemoglobin A1c 12.5 % (4-6.0)
--- NOTE | 2017-12-10 08:52 | P.CNS ---
Date of Consult: 12/10/17 Reason for Consult: Loculated pleural effusion Primary Care Provider: [facility] Chief Complaint: SOB History of Present Illness: Patient is 67 years of age admitted from the emergency room with shortness of breath which got worse over the preceding 2 days Montenegrin-speaking only has some nonproductive cough and was found to have a significant loculated pleural effusion left worse than the right Patient has interstitial lung disease history off pneumothorax after biopsy on the right side apparently she has had a partial pneumonectomy before Allergies No Known Allergies Allergy (Verified 05/12/17 21:31) Home Medications: Metformin HCl 1,000 mg PO BID 05/13/17 Acetaminophen [Tylenol] 2 tab PO Q6H 12/10/17 Docusate Sodium 1 tab PO BID 12/10/17 Ferrous Sulfate 1 tab PO BID 12/10/17 Insulin Glargine,Hum.rec.anlog [Lantus Solostar] 20 units SQ DAILY 12/10/17 Insulin Lispro [Humalog Kwikpen U-200] 200 mg SQ SEECOM 12/10/17 Ondansetron HCl 1 tab PO Q8H PRN 12/10/17 Tramadol HCl [Ultram] 1 tab PO Q6H 12/10/17 - Past Medical/Surgical History Diabetic: Yes -: DM Type 2 -: HTN -: GERD -: History of 1/3 lung removed with Hx of Pleural effusion/Pneumothorax -: 1/3 lung removed Psychosocial/ Personal History: [facility]. - Family History Mother Medical History: Cancer Notes: stomach cancer Father Medical History: Heart disease - Social History Alcohol use: No CD- Drugs: No Caffeine use: Yes Place of Residence: [facility] Review of Systems is unable to be obtained Physical Examination Temp Pulse Resp BP Pulse Ox 98.7 F 129 H 17 141/64 H 96 12/10/17 08:12 12/10/17 08:12 12/10/17 08:12 12/10/17 08:12 12/10/17 08:12 General: Alert, Cooperative Respiratory: Diminished (Loculated diminished air entry on the left side compared to right) Cardiovascular: No edema, Regular rate/rhythm, Normal S1 S2 Gastrointestinal: Normal bowel sounds, Soft and benign Laboratory Data (last 24 hrs) 12/09/17 12:40: WBC 6.6 D, Hgb 8.5 L, Hct 28.1 L, Plt Count 306 - Problems (1) Loculated pleural effusion Current Visit: Yes Status: Acute Plan: Patient is 67 years of age admitted with shortness of breath she has a very significant loculated effusion on the left side animal changes on the right side mildly anemic white count is normal patient at this time will need to be transferred to a tertiary care center for a vats decortication vital signs are stable oxygenation satisfactory she appears to be no significant distress labs and CT scans reviewed discuss with Luann
[2017-12-10] MEDS ORDERED: Magnesium Sulfate 2gm IVPB 2 G/50 ML BAG IV ONE (09:00)
[2017-12-10] MEDS ORDERED: SOD FERRIC GLUC COMPLX/SUCROSE 125 MG in NA CHLORIDE 0.9% 100 ML IV SCH (09:00)
[2017-12-10] MEDS ORDERED: DOCUSATE NA 100 MG CAP PO SCH (09:00)
[2017-12-10] MEDS: FUROSEMIDE 40 MG/4 ML VIAL IV SCH ×2 (09:57→17:00)
[2017-12-10] MEDS: PIPER/TAZO/NS 3.375gm 3.375 GM/100 ML BAG IVPB SCH ×2 (10:00→17:45)
--- NOTE | 2017-12-10 13:48 | P.DS ---
Admission Date: 12/09/17 Discharge Date: 12/10/17 Primary Care Provider: [facility] Disposition: TRANSFER TO [facility] Discharge Condition: GOOD Reason for Admission: SOB Consultations: Pulmonary-Dr. Thomas Cardiology-Dr. Gomez Procedures: CT scan: Moderate Loculated Bilateral effusions with RLL pneumonia - Problems (1) Dyspnea Onset Date: 12/10/17 Current Visit: Yes Status: Acute Qualifiers: Dyspnea type: shortness of breath Qualified Code(s): R06.02 - Shortness of breath; R06.00 - Dyspnea, unspecified; R06.01 - Orthopnea (2) Pleural effusion Onset Date: 12/10/17 Current Visit: Yes Status: Acute (3) Hx of pneumonectomy Current Visit: Yes Status: Chronic (4) CHF (congestive heart failure) Onset Date: 12/10/17 Current Visit: Yes Status: Acute Qualifiers: Heart failure type: diastolic Heart failure chronicity: acute on chronic Qualified Code(s): I50.33 - Acute on chronic diastolic (congestive) heart failure (5) Hypomagnesemia Onset Date: 12/10/17 Current Visit: Yes Status: Acute (6) Hyponatremia Onset Date: 12/10/17 Current Visit: Yes Status: Acute (7) Anemia Onset Date: 05/13/17 Current Visit: No Status: Chronic Qualifiers: Anemia type: iron deficiency Iron deficiency anemia type: unspecified iron deficiency Qualified Code(s): D50.9 - Iron deficiency anemia, unspecified (8) Diabetes mellitus Onset Date: 05/13/17 Current Visit: No Status: Chronic Qualifiers: Diabetes mellitus type: type 2 Diabetes mellitus intermediate insulin use: with intermodal dispatcher use Diabetes mellitus complication status: with unspecified complications Qualified Code(s): E11.8 - Type 2 diabetes mellitus with unspecified complications; Z79.4 - terminal operations manager (current) use of insulin; Z79.4 - terminal operations manager (current) use of insulin; Z79.4 - terminal operations manager (current) use of insulin; Z79.4 - skilled nursing (current) use of insulin (9) GERD (gastroesophageal reflux disease) Onset Date: 05/23/17 Current Visit: No Status: Chronic Qualifiers: Esophagitis presence: with esophagitis Qualified Code(s): K21.0 - Gastro- esophageal reflux disease with esophagitis (10) Hypertension Onset Date: 05/23/17 Current Visit: No Status: Chronic Qualifiers: Hypertension type: essential hypertension Qualified Code(s): I10 - Essential (primary) hypertension (11) Interstitial lung disease Onset Date: 12/10/17 Current Visit: No Status: Chronic (12) Loculated pleural effusion Current Visit: Yes Status: Acute (13) Amyloidosis Current Visit: Yes Status: Suspected Qualifiers: Amyloidosis type: unspecified amyloidosis Qualified Code(s): E85.9 - Amyloidosis, unspecified (14) Pneumonia Current Visit: No Status: Acute Qualifiers: Pneumonia type: due to unspecified organism Laterality: right Lung location: lower lobe of lung Qualified Code(s): J18.1 - Lobar pneumonia, unspecified organism Brief History of Present Illness: 67 yo HF presented to the ER after she was sent from the alf due to shortness of breath. Her daughter in law is at bedside. She reports that she has noted some SOB and cough for the last couple of days. It has been getting worse. She has some mild pain to the epigastric region. The nurses at the alf mention a room air sat of 80s. Her SOB got worse today. She also had more edema to the lower ext. No nausea or vomiting. Her appetite has been better. In the ER she was found to have a Large pleural effusion with possible loculation along with a small pleural effusion in the right. Her WBC is normal. Her blood suger is elevated. Trop is 0.03. Her magnesium is low. Due to the finding she is admitted for further evaluation and treatment. She is stable on normal canula. When I saw the patient she did not appear in respiratory distress. She has 2-3 plus pitting edema to the lower ext. Her daughter in law mentioned that she was in [place] in June and had 1/3 of her right lung removed. Hospital Course: During the course of her stay, the patient was evaluated by Cardiology and Pulmonary. CT scan of lung revealed bilateral loculated pleural effusions with RLL pneumonia. ECHO showed EF of 52%. Cardiology suspects Amyloidosis. Pulmonary evaluated the patient and recommended that the patient be sent to a higher level of care center. There the patient can be further assessed and treated by cardiothoracic surgery. Transfer was initiated. Patient will be transferred to [facility]. Patient has seen Dr. Goodman-CT surgery at [facility]. She will likely need further CT surgery intervention. Patient is currently stable at this time. Patient is currently on Zosyn to cover for RLL pneumonia and UTI. Urine and blood cultures have been obtained. Patient with DM. Her basal insulin was held due to low BS. She will continue with sliding scale. Patient has HTN. She was started on Metoprolol. This can be further addressed. Patient with Anemia. She has a history of iron deficiency. I have started IV iron for supplementation. She may have a component of diastolic CHF. She will continue with Lasix IV. Vital Signs/Physical Exam: Temp Pulse Resp BP Pulse Ox 98.7 F 129 H 17 141/64 H 96 12/10/17 08:12 12/10/17 08:12 12/10/17 08:12 12/10/17 08:12 12/10/17 08:12 General: Alert, In no apparent distress, Oriented x3, Cooperative HEENT: Atraumatic Neck: Supple Respiratory: Diminished (bilateral) Cardiovascular: Abnormal pulses (sinus tachy) Gastrointestinal: Normal bowel sounds, Non-distended, No tenderness, No masses, No rebound, No guarding Integumentary: Tenderness/swelling (1-2 plus edema to the lower ext. This has improved. ) Laboratory Data at Discharge: WBC 7.2 K/uL (4.3-10.9) 12/10/17 05:18 Hgb 8.3 g/dL (12.0-15.0) L 12/10/17 05:18 Hct 26.2 % (36.0-45.0) L 12/10/17 05:18 Plt Count 343 K/uL (152-406) 12/10/17 05:18 PT 19.0 SECONDS (9.5-12.5) H 12/09/17 21:00 INR 1.60 12/09/17 21:00 APTT 32.3 SECONDS (24.3-36.9) 12/09/17 21:00 Sodium 134 mEq/L (135-145) L 12/10/17 05:18 Potassium 4.0 mEq/L (3.6-5.0) 12/10/17 05:18 BUN 15 mg/dL (6-20) 12/10/17 05:18 Creatinine 0.41 mg/dL (0.44-1.00) L 05/30/18 05:18 Glucose 34 mg/dL (65-120) L* 12/10/17 05:18 Magnesium 1.2 mg/dL (1.8-2.5) L* 12/10/17 05:18 Total Bilirubin 0.7 mg/dL (0.3-1.2) 12/09/17 14:30 AST 14 IU/L (10-42) 12/09/17 14:30 ALT 10 IU/L (10-60) 12/09/17 14:30 Alkaline Phosphatase 79 IU/L (42-121) 12/09/17 14:30 Troponin I 0.03 ng/mL (<0.03) 12/10/17 05:18 B-Natriuretic Peptide 279 pg/ml (<=100) H 12/09/17 14:30 Triglycerides 70 mg/dL (35-160) 12/10/17 05:18 Cholesterol 73 mg/dL (<200) 12/10/17 05:18 HDL Cholesterol 22 mg/dL (29-89) L 12/10/17 05:18 Cholesterol/HDL Ratio 3.32 12/10/17 05:18 Lipase 19 U/L (22-51) L 12/09/17 14:30 Home Medications: Metformin HCl 1,000 mg PO BID 05/13/17 Acetaminophen [Tylenol] 2 tab PO Q6H 12/10/17 Docusate Sodium 1 tab PO BID 12/10/17 Ferrous Sulfate 1 tab PO BID 12/10/17 Insulin Glargine,Hum.rec.anlog [Lantus Solostar] 20 units SQ DAILY 12/10/17 Insulin Lispro [Humalog Kwikpen U-200] 200 mg SQ SEECOM 12/10/17 Ondansetron HCl 1 tab PO Q8H PRN 12/10/17 Tramadol HCl [Ultram] 1 tab PO Q6H 12/10/17 Patient Discharge Instructions: Patient will be transferred to [facility] for further evaluate and treatment for her bilateral loculated pleural effusions with RLL pneumonia. Diet: ADA Activity: Bedrest Time spent managing pt's care (in minutes): 55
[2017-12-10] MEDS ORDERED: ENOXAPARIN 30 MG/0.3 ML SQ SCH (17:00)
[2017-12-10] MEDS ORDERED: METOPROLOL TAR 25 MG TAB PO SCH (18:00)
--- NOTE | 2017-12-11 01:01 | PN ---
The patient was admitted yesterday with a large pleural effusion. I read her echocardiogram as a pos sible amyloidosis. I had Dr. 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 We agree with her present regimen. Her a myloid may need to be investigated further and possibly proven by biopsy. We suggest a Endocrinology or Rheumatology evaluation as an outpatient. The case was discussed with Dr. Kong. JOE/RICARDO Voice ID: [id number] Report ID: [id number]
== END 2017-12-10 19:05 | disposition short-term general hospital (02) | DRG 193 ==
LOC: ER 11:29 → ERHOLD 14:09 → 2ND 17:51
PROVIDERS: ADMIT Family Medicine; ATTEND Family Medicine
DX: J18.9 Pneumonia, unspecified organism (principal); I50.23 Acute on chronic systolic (congestive) heart failure; I50.33 Acute on chronic diastolic (congestive) heart failure; J90 Pleural effusion, not elsewhere classified; E87.1 Hypo-osmolality and hyponatremia; E85.9 Amyloidosis, unspecified; E11.9 Type 2 diabetes mellitus without complications; I10 Essential (primary) hypertension; K21.9 Gastro-esophageal reflux disease without esophagitis; E83.42 Hypomagnesemia; D50.9 Iron deficiency anemia, unspecified
CPT/HCPCS: 36415; 71045; 71260; 80048; 80053; 80061; 80076; 81003; 81015; 82550; 82553; 82607; 82728; 82962; 83036; 83540; 83690; 83735; 83880; 84134; 84439; 84443; 84466; 84484; 85025; 85610; 85730; 86850; 86900; 86901; 87040; 87077; 87086; 87088; 87186; 93005; 93306; 94640; 96372; 96374; 96375; 99285; J1650; J2543; J2916; J3475; J7605; Q9967